=== PATIENT | female | born 1970 | race Asian ===

== ENCOUNTER 2018-02-22 16:20 | Emergency (ER) | payer OTHER | END 2018-02-22 17:25 | disposition home or self-care (01) | LOC: EDH 16:20 | DX: K11.7 Disturbances of salivary secretion (principal); K11.8 Other diseases of salivary glands; E07.9 Disorder of thyroid, unspecified; Z85.3 Personal history of malignant neoplasm of breast | CPT/HCPCS: 99281 ==